=== PATIENT | male | born 1995 | race Caucasian/White ===

== ENCOUNTER 2018-12-24 22:42 | Emergency (ER) | payer OTHER ==
[2018-12-24 23:15] VITALS: BMI 27.0
[2018-12-25 00:35] VITALS: BP 130/81; PULSE 94; TEMP 98.3
--- NOTE | 2018-12-25 00:35 | PDOC ---
History of Present Illness - General Chief Complaint: Rash Stated Complaint: RASH Time Seen by Provider: 12/24/18 23:36 History Source: Patient Exam Limitations: No Limitations - History of Present Illness Initial Comments: HPI: 23 y/o male presenting to [facility] ER complaining of groin burning and itching for the past 1.5 months. Worse tonight after shaving area this morning. Symptoms started after shaving his entire body before a birthday trip to [place]. Was evaluated at [facility] after returning from the trip and sent home with two oral antibiotics (unable to recall name). Was then evaluated at [facility] and sent home. PCP encouraged him to try Tea Tree oil, which made the sensation worse. He has not used it in the past week. Medical Hx: - Pt denies past medical history. Denies prescription medications. Surgical Hx: - Pt denies past surgical history. Review of Systems: In addition to that documented in the HPI above, the additional ROS was obtained : Constitutional: Denies fevers or chills ENMT: Denies sore throat CV: Denies chest pain Resp: Denies SOB GI: Denies vomiting or diarrhea : Denies dysuria, hematuria, urinary frequency, or penile discharge Physical Examination: Constitutional: Well-developed, well-nourished adult malein no acute distress or obvious discomfort. Found semi-fowlers on hospital bed. Alert and oriented x4. Answered all questions appropriately and completely. Speech was non-labored , non-pressured. Cardiovascular / Chest: Regular rate and regular rhythm. No murmur, rubs, clicks , or gallops. Peripheral pulses: radial pulses full. Respiratory: Breathing unlabored. Equal chest rise and fall. Clear to auscultation bilaterally. No stridor, no wheezing, no rhonchi. Psych: Affect: appropriate. Mood: normal. Male : Genital exam revealed normally developed male genitalia. Erythema surrounding scrotal sac and medial aspect of thighs. No scrotal mass or inguinal lymphadenopathy. No perineal abnormalities are seen. No genital lesions or urethral discharge. RN chaperoned exam. MDM: *Reviewed vital signs, nursing notes, and prior visit documentation (if available). 23 y/o female presenting with burning and itching x1.5 months. No systemic infectious symptoms. Afebrile. Vitals unremarkable for hypotension or tachycardia. Physical exam as described above. Suspect likely localized candidal infection. Will prescribe topical clotrimazole. Possible folliculitis on upper arms. Will prescribe chlorhexidine body wash. Discussed physical exam findings with pt. Answered all questions. Provided return precautions. Pt expressed verbal understanding and agreement with plan to discharge home with outpatient follow up. Abram Munguia M.D., PGY1 Emergency Medicine Resident Past History - Past Medical History Allergies/Adverse Reactions: Allergies Allergy/AdvReac Type Severity Reaction Status Date / Time shellfish derived Allergy Severe Swelling Verified 12/24/18 23:15 Home Medications: Ambulatory Orders Chlorhexidine Gluconate [Scrub Chlorhexidine Gluconate] 118 ml TP DAILY #1 liquid 12/25/18 Clotrimazole [Clotrimazole AF] 28 gm TP BID #14 cream..g. 12/25/18 COPD: No - Suicide/Smoking/Psychosocial Hx Smoking History: Never smoked Have you smoked in the past 12 months: No Information on smoking cessation initiated: No Hx Alcohol Use: No Drug/Substance Use Hx: No *Physical Exam - Vital Signs Last Vital Signs Temp Pulse Resp BP Pulse Ox 98.4 F 89 17 149/71 100 12/24/18 23:12 12/24/18 23:12 12/24/18 23:12 12/24/18 23:12 12/24/18 23:12 *DC/Admit/Observation/Transfer Diagnosis at time of Disposition: Brigette infection of genital region, Folliculitis - Discharge Dispostion Disposition: HOME Condition at time of disposition: Good Decision to Admit order: No - Prescriptions Prescriptions: Chlorhexidine Gluconate [Scrub Chlorhexidine Gluconate] 118 ml TP DAILY #1 liquid Clotrimazole [Clotrimazole AF] 28 gm TP BID #14 cream..g. - Referrals - Patient Instructions Printed Discharge Instructions: DI for Folliculitis, DI for Jock Itch Additional Instructions: You were seen today for a burning and itching sensation in your groin for the past month and a half. Your symptoms are likely caused by a candidal infection ( jock itch). The areas on your arm are likely a small infection called folliculitis. This is usually caused by shaving. Neither of these are life threatening infections. Keep the area dry and stop wearing tight fitting clothes. I have sent two prescriptions to your pharmacy. Apply each as directed on the package insert. Follow up with your primary care doctor within the next week or so. You will need to call to make an appointment. Go to the nearest emergency department if your condition worsens or you feel like you need additional emergency evaluation. Print Language: CZECH - Post Discharge Activity
--- NOTE | 2018-12-25 00:56 | PDOC ---
Documentation entered by Alisson Vega SCRIBE, acting as scribe for Destinee Butler DO. Destinee Butler DO: This documentation has been prepared by the Silvia wang Sammi, SCRIBE, under my direction and personally reviewed by me in its entirety. I confirm that the documentation accurately reflects all work, treatment, procedures, and medical decision making performed by me. Attending Attestation - Resident Resident Name: Abram Munguia - HPI HPI: 12/25/18 00:42 The patient is a 23 year old male, with a significant PMH of an STI 3 years ago (was recently tested somewhere else and tested negative), who presents to the emergency department for evaluation of a rash to the genitalia area. - Physicial Exam PE: 12/25/18 00:43 Mild falicullitis bilateral extremities Jock itch No discharge from penis No other rash bumps lumps GENERAL: Awake, alert, and fully oriented, in no acute distress HEAD: No signs of trauma EYES: PERRLA, EOMI, sclera anicteric, conjunctiva clear ENT: Auricles normal inspection, hearing grossly normal, nares patent, oropharynx clear without exudates. Moist mucosa NECK: Normal ROM, supple, no lymphadenopathy, JVD, or masses LUNGS: Breath sounds equal, clear to auscultation bilaterally. No wheezes, and no crackles HEART: Regular rate and rhythm, normal S1 and S2, no murmurs, rubs or gallops ABDOMEN: Soft, nontender, normoactive bowel sounds. No guarding, no rebound. No masses GENITOURINARY: (+)Jock itch. No discharge from penis. EXTREMITIES: Normal range of motion, no edema. No clubbing or cyanosis. No cords, erythema, or tenderness NEUROLOGICAL: Cranial nerves II through XII grossly intact. Normal speech, normal gait SKIN: (+) mild falicullitis to bilateral upper extremities. No other rash, bumps , or lumps elsewhere. Warm, Dry, normal turgor. - Medical Decision Making 12/25/18 00:53 a/p: 23yo male with genital itching/burning - red rash -red rash along inner groin where he shaves, concerning for jock itch -also with inflamm of the hair follicles to UE - mild folliculitis -stable for dc to home with topical clotrimazole and chlorhexidene wash -stable for dc to home
== END 2018-12-25 00:53 | disposition home or self-care (01) ==
LOC: JER 22:42
DX: B37.49 Other urogenital candidiasis (principal)
CPT/HCPCS: 99282-25

== ENCOUNTER 2021-08-14 00:22 | Emergency (ER) | payer OTHER ==
[2021-08-14 00:37] VITALS: BP 130/76; PULSE 87; TEMP 98; BMI 29.7
[2021-08-14] MEDS ORDERED: ACETAMINOPHEN 325 MG TABLET (FP) PO ONE (01:24)
[2021-08-14] MEDS ORDERED: ACETAMINOPHEN 325 MG TABLET (FP) ONE (01:33)
[2021-08-14] MEDS ORDERED: LIDOCAINE 5% TOPICAL PATCH TP ONE (02:34)
[2021-08-14] MEDS ORDERED: NAPROXEN 500 MG TABLET PO ONE (02:43)
[2021-08-14] MEDS ORDERED: NAPROXEN 500 MG TABLET ONE (02:53)
[2021-08-14] MEDS ORDERED: LIDOCAINE 5% TOPICAL PATCH ONE (02:54)
[2021-08-14] MEDS ORDERED: LIDOCAINE PATCH REMOVAL MC SCH (22:00)
== END 2021-08-14 03:31 | disposition home or self-care (01) ==
LOC: JER 00:22
DX: M54.2 Cervicalgia (principal); M79.601 Pain in right arm; V49.50XA Passenger injured in collision with unspecified motor vehicles in traffic accident, initial encounter
CPT/HCPCS: 70450-TC; 72125-TC; 99284-25

== ENCOUNTER 2023-06-20 04:11 | Day surgery (SDC) | payer OTHER ==
[2023-06-19 09:40] VITALS: BMI 31.0
[~2023-06-20 04:11] MED LIST: ceFAZolin SODIUM 1 GM VIAL IVPB ONE
[2023-06-20] MEDS ORDERED: ceFAZolin SODIUM 1 GM VIAL ONE (10:18)
[2023-06-20] MEDS ORDERED: LIDOCAINE HCL/PF 2% SDV 5ML VIAL ONE (10:18)
[2023-06-20] MEDS ORDERED: SUGAMMADEX SODIUM 200 MG/2 ML VIAL ONE (10:18)
[2023-06-20] MEDS ORDERED: PROPOFOL 20 ML ONE (10:18)
[2023-06-20] MEDS ORDERED: ROCURONIUM BROMIDE 50 MG/5 ML SYRINGE ONE (10:18)
[2023-06-20] MEDS ORDERED: ONDANSETRON 4 MG/2 ML VIAL ONE (10:18)
[2023-06-20] MEDS ORDERED: DEXAMETHASONE SOD PHOSPHATE 4 MG/1 ML VIAL ONE (10:18)
[2023-06-20] MEDS ORDERED: SODIUM CHLORIDE 0.9% P/F 10 ML VIAL IJ ONE (10:19)
[2023-06-20] MEDS ORDERED: MIDAZOLAM HCL 2 MG/2 ML SINGLE DOSE VIAL ONE (11:11)
[2023-06-20] MEDS ORDERED: ACETAMINOPHEN INJECTION 100 ML IVPB ONE (11:29)
[2023-06-20] MEDS ORDERED: ONDANSETRON 4 MG/2 ML VIAL IVPUSH PRN (12:07)
[2023-06-20] MEDS ORDERED: oxyCODONE HCL 5 MG TABLET PO PRN ×2 (12:07)
[2023-06-20] MEDS ORDERED: ACETAMINOPHEN 325 MG TABLET (FP) PO PRN (12:07)
[2023-06-20] MEDS ORDERED: LACTATED RINGERS SOLUTION 1,000 ML IV SCH (12:15)
[2023-06-20] MEDS ORDERED: ceFAZolin SODIUM 1 GM VIAL IVPB ONE (12:40)
[2023-06-20 16:09] VITALS: RESP 18; TEMP 97.2
[2023-06-20 16:54] VITALS: BP 125/69; PULSE 97
== END 2023-06-20 16:54 | disposition home or self-care (01) ==
LOC: JASU-SURG 04:11
PROVIDERS: ATTEND Otolaryngology
PROC: 0CTQ0ZZ Resection of Adenoids, Open Approach (ICD-10-PCS; 2023-06-20)
PROC: 0CTPXZZ Resection of Tonsils, External Approach (ICD-10-PCS; principal; 2023-06-20 12:30)
DX: J35.03 Chronic tonsillitis and adenoiditis (principal)
CPT/HCPCS: 94010; 94760

== ENCOUNTER 2024-12-19 20:45 | Emergency (ER) | payer OTHER ==
[2024-12-19 20:51] VITALS: RESP 18; BMI 31.0
[2024-12-19 21:54] LABS: MCHC 33.4 g/dl (32.3-36.5)
[2024-12-19 21:56] LABS: HEMATOCRIT 44.9 % (40.1-51.0); MEAN PLT VOLUME 10.2 fl (9.4-12.4); PLATELET COUNT 296 x10^3/uL (163-337)
[2024-12-19 22:24] LABS: ALBUMIN 4.1 g/dl (3.4-5.0); BLOOD UREA NITROGEN 11.8 mg/dL (7-18); CALCIUM 9.4 mg/dL (8.5-10.1)
[2024-12-19 22:25] LABS: MAGNESIUM 2.1 mg/dL (1.8-2.4)
[2024-12-19 22:28] LABS: CREATININE 0.9 mg/dL (0.55-1.3); PHOSPHOROUS 4.7 mg/dL (2.5-4.9)
[2024-12-19 22:29] LABS: BILIRUBIN,TOTAL 0.6 mg/dL (0.2-1)
[2024-12-19 22:30] LABS: TOT PROT 7.3 g/dl (6.4-8.2)
[2024-12-19 22:48] VITALS: BP 136/78; PULSE 78; TEMP 98.3
== END 2024-12-19 22:48 | disposition home or self-care (01) ==
LOC: JER 20:45
DX: R20.0 Anesthesia of skin (principal); I49.8 Other specified cardiac arrhythmias
CPT/HCPCS: 0241U-QW; 36415; 70450-TC; 80053; 83735; 84100; 84439; 84443; 84484; 85025; 93005; 93010; 99285-25